=== PATIENT | male | born 1955 | race Two or more races ===

== ENCOUNTER 2019-09-20 10:39 | Outpatient (CLI) | payer OTHER | END 2019-09-20 11:17 | disposition home or self-care (01) | LOC: RAD 10:39 | DX: R07.89 Other chest pain (principal) ==

== ENCOUNTER 2019-09-20 11:17 | Outpatient (CLI) | payer OTHER | END 2019-09-20 11:21 | disposition home or self-care (01) | LOC: EKG 11:17 | DX: I10 Essential (primary) hypertension (principal) ==

== ENCOUNTER 2020-04-02 09:30 | Inpatient (IN) | payer OTHER ==
[~2020-04-02] VITALS: Ht 182.9 cm; Wt 81.6 kg
[~2020-04-02 09:30] MED LIST: GLIMEPIRIDE1 MG; HYDROCHLOROTHIA25 MG PO; LOSARTAN-HCTZ1 EAC1 PO
[2020-04-02] MEDS ORDERED: LIPITOR20 MG PO (10:20)
[2020-04-09] MEDS ORDERED: LOSARTAN POTAS100 MG (10:20)
[2020-04-09] MEDS ORDERED: GABAPENTIN800 M1 (10:20)
== END 2020-04-11 18:00 | DRG 470 ==
LOC: SURH 04-09 05:05 → O/R 04-09 05:05 → SURH 04-09 14:57
PROVIDERS: ADMIT Orthopaedic Surgery; ATTEND Orthopaedic Surgery
PROC: 0SRD0J9 Replacement of Left Knee Joint with Synthetic Substitute, Cemented, Open Approach (ICD-10-PCS; principal; 2020-04-09 07:00)
DX: M17.12 Unilateral primary osteoarthritis, left knee (principal); D62 Acute posthemorrhagic anemia; I10 Essential (primary) hypertension; E78.00 Pure hypercholesterolemia, unspecified; E11.9 Type 2 diabetes mellitus without complications